=== PATIENT | male | born 1955 | race African-American/Black ===

== ENCOUNTER 2022-05-03 09:00 | Emergency (ER) | payer MEDICARE, MEDICAID ==
[2022-05-03 10:44] LABS: Hemoglobin 16.5 g/dL (14.0-18.0); Mean Corpuscular HGB CONC 33.2 g/dL (32.0-36.0); Mean Corpuscular Hemoglobin 32.3 pg (27.0-31.0); Mean Corpuscular Volume 97.3 fL (78.0-98.0); Platelet Count 342 thou/uL (130-400); RBC Distribution Width 14.6 % (11.5-14.5); White Blood Cell (WBC) Count 8.4 thou/uL (4.8-10.8)
[2022-05-03 10:45] LABS: ALT (SGPT) 20 U/L (8-55); AST (SGOT) 15 U/L (5-34); Acetaminophen Less than 10.0 mcg/mL (10.0-30.0); Albumin 4.1 g/dL (3.4-4.8); Alcohol Less than 10 mg/dL (Less than 10); Alkaline Phosphatase 91 U/L (40-110); Anion Gap 15 mmol/L (10-20); BUN (Urea Nitrogen) 9 mg/dL (8.4-25.7); Bilirubin, Total 0.6 mg/dL (0.2-1.2); CK (CPK) 144 U/L (30-200); Calc. Creatinine Clearance 0 mL/min (70-130); Calcium 9.7 mg/dL (7.8-10.44); Carbon Dioxide 21 mmol/L (23-31); Chloride 104 mmol/L (98-107); Estimated GFR 96; Globulin 3.4 g/dL (2.4-3.5); Glucose 246 mg/dL (80-115); Potassium 4.1 mmol/L (3.5-5.1); Protein, Total 7.5 g/dL (5.8-8.1); Salicylate Less than 8.0 mg/dL (15.0-30.0); Sodium 136 mmol/L (136-145)
[2022-05-03 11:05] LABS: Lymphocytes 51 % (21-51); MDiff Complete? YES; Monocytes 12 % (0-10); Neutrophil 37 % (42-75); Platelet Morphology Comment Appears Adequate; RBC Morphology Normal
[2022-05-03 11:58] LABS: Bacteria/HPF None Seen HPF (None Seen); Bilirubin Negative (Negative); Blood, Urine Negative (Negative); Clarity Clear (Clear); Glucose, Urine (Dipstick) Greater than 1000 mg/dL (Negative); Ketone, Urine Negative (Negative); Leukocyte Negative Leu/uL (Negative); Nitrite Negative (Negative); Protein, Urine (Dipstick) 30 mg/dL (Neg-Trace); RBC/HPF 0-3 HPF (0-3); Specific Gravity, Urine 1.022 (1.002-1.036); Squamous Epithelial 0-3 HPF (0-3); Urobilinogen Normal mg/dL (Less than 2); WBC/HPF 0-3 HPF (0-3); pH, Urine 5.5 (5.0-9.0)
[2022-05-03 12:06] LABS: Amphetamine Not Detected (NotDetected); Barbiturates Screen Not Detected (NotDetected); Benzodiazepine Screen Not Detected (NotDetected); Cocaine Metabolite Screen Detected (NotDetected); Methadone Not Detected (NotDetected); Methamphetamine Not Detected (NotDetected); Opiate Screen Not Detected (NotDetected); Oxycodone Screen Not Detected (NotDetected); Phencyclidine (PCP) Not Detected (NotDetected); THC/Cannabinoid Screen Not Detected (NotDetected); Tricyclic Screen Detected (NotDetected)
[2022-05-04 16:48] LABS: SARS-CoV-2 NAA Rapid Test Not Detected (NotDetected)
[2022-05-04] MEDS ORDERED: Acetaminophen 325 MG TAB PO PRN (17:31)
[2022-05-04] MEDS ORDERED: Ibuprofen 600 MG TAB PO PRN (17:32)
[2022-05-04] MEDS ORDERED: traZODone HCl 50 MG TAB PO PRN ×2 (17:33→17:45)
[2022-05-04] MEDS ORDERED: hydrOXYzine 25 MG TAB PO PRN (17:35)
[2022-05-04] MEDS ORDERED: RisperDAL M-TAB 1 MG TAB PO SCH (21:00)
[2022-05-05] MEDS ORDERED: Buprenorphine 8mg/Naloxone 2mg per 1 FILM SL SCH (09:00)
== END 2022-05-03 11:14 ==
LOC: ERS 09:00 → EDBD 09:00 → ERS 11:14
DX: F29 Unspecified psychosis not due to a substance or known physiological condition (principal); R45.851 Suicidal ideations; F14.10 Cocaine abuse, uncomplicated; E11.9 Type 2 diabetes mellitus without complications; F17.200 Nicotine dependence, unspecified, uncomplicated; Z20.822 Contact with and (suspected) exposure to COVID-19; Z79.899 Other long term (current) drug therapy
CPT/HCPCS: 80306; 80307; 82550; 84484; 93005; 94760; U0002; 36415; 71045; 80053; 81003; 81015; 84443; 85025